=== PATIENT | male | born 1955 | race Caucasian/White ===

== ENCOUNTER 2017-12-07 10:19 | Inpatient (IN) | payer BC ==
[2017-12-07 10:31] VITALS: BMI 27.3
[2017-12-07] MEDS ORDERED: SODIUM CHLORIDE 1,000 ML IV STA ×2 (10:59→13:06)
[2017-12-07] MEDS ORDERED: DIPHTH,PERTUSS(ACELL),TET 0.5 ML DISP.SYRIN IM ONE (10:59)
[2017-12-07] MEDS ORDERED: AMPICILLIN NA/SULBACTAM NA 3 GM in SODIUM CHLORIDE 100 ML IVPB ONE (11:00)
[2017-12-07] MEDS ORDERED: ACETAMINOPHEN 500 MG TABLET (FP) PO ONE (11:01)
--- NOTE | 2017-12-07 11:03 | PDOC ---
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 He noticed progressive swelling, tenderness of the mid finger on the palmar aspect extending to the forearm) - History of Present Illness Timing/Duration: getting worse Modifying Factors: improves with: immobilization Associated Symptoms: reports: denies symptoms Past History - Travel Traveled outside of the country in the last 30 days: No Close contact w/someone who was outside of country & ill: No - Past Medical History Allergies/Adverse Reactions: Allergies Allergy/AdvReac Type Severity Reaction Status Date / Time oxycodone Allergy Itching Verified 12/07/17 10:20 Home Medications: Ambulatory Orders Amlodipine Besylate 10 mg PO DAILY 12/07/17 Aspirin [Aspirin EC] 81 mg PO DAILY 12/07/17 Ibuprofen [Advil -] 200 mg PO ASDIR 12/07/17 Rosuvastatin Calcium [Crestor] 40 mg PO DAILY 12/07/17 COPD: No HTN: Yes Hypercholesterolemia: Yes - Surgical History Appendectomy: Yes - Suicide/Smoking/Psychosocial Hx Smoking History: Never smoked Hx Alcohol Use: (social) Review of Systems - Review of Systems Able to Perform ROS?: Yes Is the patient limited Wolof proficient: Yes Constitutional: Yes: Symptoms Reported, Fever, Malaise HEENTM: No: Symptoms Reported, See HPI, Eye Pain, Blurred Vision, Tearing, Recent change in vision, Double Vision, Cataracts, Ear Pain, Ocular Prothesis, Ear Discharge, Nose Pain, Nose Congestion, Tinnitus, Nose Bleeding, Hearing Loss , Throat Pain, Throat Swelling, Mouth Pain, Dental Problems, Difficulty Swallowing, Mouth Swelling, Other Respiratory: No: Symptoms reported, See HPI, Cough, Orthopnea, Shortness of Breath, SOB with Exertion, SOB at Rest, Stridor, Wheezing, Productive cough, Hemoptysis, Other Cardiac (ROS): No: Symptoms Reported, See HPI, Chest Pain, Edema, Irregular Heart Rate, Lightheadedness, Palpitations, Syncope, Chest Tightness, Other ABD/GI: No: Symptoms Reported, See HPI, Abdominal Distended, Abd. Pain w/ defecation, Blood Streaked Bowels, Constipated, Diarrhea, Difficulty Swallowing , Nausea, Poor Appetite, Poor Fluid Intake, Rectal Bleeding, Vomiting, Indigestion, Abdominal cramping, Tarry Stools, Other : No: Symptoms Reported, See HPI, Burning, Dysuria, Discharge, Frequency, Flank Pain, Hematuria, Incontinence, Pain, Urgency, Testicular Mass, Testicular Swelling, Lesions, Testicular Pain, Other Musculoskeletal: Yes: Symptoms Reported, See HPI Integumentary: Yes: Symptoms Reported, See HPI Neurological: No: Symptoms reported, See HPI, Headache, Numbness, Paresthesia, Pre-Existing Deficit, Seizure, Tingling, Tremors, Weakness, Unsteady Gait, Ataxia, Dizziness, Other Psychiatric: No: Anxiety, Depression, Frequent Crying, Stressors, Sleep Pattern Change, Emotional Problems, Mood Swings, Change in Appetite, Other All Other Systems: Reviewed and Negative *Physical Exam - Vital Signs Last Vital Signs Temp Pulse Resp BP Pulse Ox 100.3 F H 102 H 20 143/89 99 12/07/17 10:20 12/07/17 10:20 12/07/17 10:20 12/07/17 10:20 12/07/17 10:20 - Physical Exam General Appearance: Yes: Nourished, Appropriately Dressed, Moderate Distress HEENT: positive: RAEANN Neck: positive: Supple Respiratory/Chest: positive: Lungs Clear Cardiovascular: positive: S1, S2 Extremity: positive: Normal Capillary Refill, Swelling (Swelling, tenderness mid finger of the left hand redness extending on the volar aspect of the wrist and forearm) Integumentary: positive: Normal Color Neurologic: positive: 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 - Medical Decision Making Blood tests, X rays and atbc ordered immediately from arrival. Discussed with Dr Andrea Villarreal [facility] plastic surgeon , Patient will be taken to OR at the [facility] Arrangement made for OR acces at [facility] 12/07/17 14:25 *DC/Admit/Observation/Transfer Diagnosis at time of Disposition: Tenosynovitis of finger and hand - Discharge Dispostion Condition at time of disposition: Guarded Admit: Yes - Referrals - Patient Instructions - Post Discharge Activity
[2017-12-07] MEDS ORDERED: AMPICILLIN NA/SULBACTAM NA 3 GM VIAL ONE (11:10)
[2017-12-07] MEDS ORDERED: ACETAMINOPHEN 500 MG TABLET (FP) ONE (11:10)
[2017-12-07 11:20] LABS: BASO % 0.2 % (0-2.0); EOS % 0.2 % (0-4.5); HEMATOCRIT 42.8 % (35.4-49); HEMOGLOBIN 14.1 GM/dl (11.7-16.9); LYMPH % 7.7 % (8-40); MCH 28.9 pg (25.7-33.7); MCHC 32.9 g/dl (32.0-35.9); MEAN CELL VOLUME 87.6 fl (80-96); MEAN PLT VOLUME 8.1 fl (7.5-11.1); MONO % 7.4 % (3.8-10.2); NEUT % 84.5 % (42.8-82.8); PLATELET COUNT 288 K/MM3 (134-434); RBC 4.89 M/mm3 (4.00-5.60); WHITE BLOOD COUNT 11.3 K/mm3 (4.0-10.8)
[2017-12-07 11:27] LABS: ALBUMIN 3.7 g/dl (3.5-5.0); ALK PHOS 72 U/L (32-92); ANION GAP 10 (8-16); BILIRUBIN,TOTAL 0.5 mg/dl (0.2-1.0); BLOOD UREA NITROGEN 11 mg/dl (7-18); CALCIUM 8.7 mg/dl (8.4-10.2); CHLORIDE 102 mmol/L (98-107); CO2 23 mmol/L (22-28); GLUCOSE,RANDOM 273 mg/dl (74-106); POTASSIUM 3.6 mmol/L (3.5-5.1); SGOT/AST 33 U/L (10-42); SGPT/ALT 39 U/L (10-40); SODIUM 135 mmol/L (136-145); TOT PROT 6.7 g/dl (6.4-8.3)
--- NOTE | 2017-12-07 12:44 | HP ---
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 He denies fevers/chills. ER course was notable for: (1) Marked swelling and limited ROM with erythema of dorsum of hand as well as left upper arm (2) Hand xray: no retained foreign body (3) WBC 11.3, lactic acid 2.8, random glucose 273 Recent Travel: None PAST MEDICAL HISTORY: As above PAST SURGICAL HISTORY: Left rotator cuff, left knee, appendix, tonsills Social History: Lives with 17 year old son, employed Smoking: Never smoker Alcohol: Occasional Drugs: None Family History: Dementia, HTN Allergies oxycodone Allergy (Verified 12/07/17 10:20) Itching HOME MEDICATIONS: Home Medications Medication Instructions Recorded Amlodipine Besylate 10 mg PO DAILY 12/07/17 Aspirin [Aspirin EC] 81 mg PO DAILY 12/07/17 Ibuprofen [Advil -] 200 mg PO ASDIR 12/07/17 Rosuvastatin Calcium [Crestor] 40 mg PO DAILY 12/07/17 REVIEW OF SYSTEMS CONSTITUTIONAL: Absent: fever, chills, diaphoresis, generalized weakness, malaise, loss of appetite, weight change HEENT: Absent: rhinorrhea, nasal congestion, throat pain, throat swelling, difficulty swallowing, mouth swelling, ear pain, eye pain, visual changes CARDIOVASCULAR: Absent: chest pain, syncope, palpitations, irregular heart rate, lightheadedness , peripheral edema RESPIRATORY: Absent: cough, shortness of breath, dyspnea with exertion, orthopnea, wheezing, stridor, hemoptysis GASTROINTESTINAL: Absent: abdominal pain, abdominal distension, nausea, vomiting, diarrhea, constipation, melena, hematochezia GENITOURINARY: Absent: dysuria, frequency, urgency, hesitancy, hematuria, flank pain, genital pain MUSCULOSKELETAL: See HPI SKIN: Absent: rash, itching, pallor HEMATOLOGIC/IMMUNOLOGIC: Absent: easy bleeding, easy bruising, lymphadenopathy, frequent infections ENDOCRINE: Absent: unexplained weight gain, unexplained weight loss, heat intolerance, cold intolerance NEUROLOGIC: Absent: headache, focal weakness or paresthesias, dizziness, unsteady gait, seizure, mental status changes, bladder or bowel incontinence PSYCHIATRIC: Absent: anxiety, depression, suicidal or homicidal ideation, hallucinations. PHYSICAL EXAMINATION Vital Signs - 24 hr 12/07/17 10:20 Temperature 100.3 F H Pulse Rate 102 H Respiratory 20 Rate Blood Pressure 143/89 O2 Sat by Pulse 99 Oximetry (%) GENERAL: Awake, alert, and fully oriented, in no acute distress. EYES: Pupils equal, round and reactive to light, extraocular movements intact, sclera anicteric, conjunctiva clear. No lid lag. EARS, NOSE, THROAT: Ears normal, nares patent, oropharynx clear without exudates. Moist mucous membranes. NECK: Normal range of motion, supple without lymphadenopathy, JVD, or masses. LUNGS: Breath sounds equal, clear to auscultation bilaterally. No wheezes, and no crackles. No accessory muscle use. HEART: Regular rate and rhythm, normal S1 and S2 without murmur, rub or gallop. ABDOMEN: Soft, nontender, not distended, normoactive bowel sounds, no guarding, no rebound, no masses. No hepatomegaly or splenomegaly. MUSCULOSKELETAL: Normal range of motion at all joints. No bony deformities or tenderness. No CVA tenderness. UPPER EXTREMITIES: 2+ pulses, warm, well-perfused. No cyanosis. No clubbing. Left 3rd digit swelling and limited ROM, lymphangitic streaking up hand with isolated redness over left bicep. LOWER EXTREMITIES: 2+ pulses, warm, well-perfused. No calf tenderness. No peripheral edema. NEUROLOGICAL: Cranial nerves II-XII intact. Normal speech. Normal gait. PSYCHIATRIC: Cooperative. Good eye contact. Appropriate mood and affect. SKIN: Warm, dry, normal turgor. Laboratory Results - last 24 hr 12/07/17 12/07/17 11:00 11:00 WBC 11.3 H RBC 4.89 Hgb 14.1 Hct 42.8 MCV 87.6 MCH 28.9 MCHC 32.9 RDW 12.0 Plt Count 288 MPV 8.1 Neutrophils % 84.5 H Lymphocytes % 7.7 L Monocytes % 7.4 Eosinophils % 0.2 Basophils % 0.2 Sodium 135 L Potassium 3.6 Chloride 102 Carbon Dioxide 23 Anion Gap 10 BUN 11 Creatinine 1.0 Creat Clearance w eGFR > 60 Random Glucose 273 H Calcium 8.7 Total Bilirubin 0.5 AST 33 ALT 39 Alkaline Phosphatase 72 Total Protein 6.7 Albumin 3.7 ASSESSMENT/PLAN: 62 year old male with cellulitis and tenosynovitis of the left hand. Problem List - Problem (1) Tenosynovitis of finger and hand Assessment/Plan: -Continue Unasyn -Vancomycin x 1 dose pending ID recommendations -NPO for OR (last had vanilla oscar this morning, no solids today) -Acetaminophen for pain control - patient recalls having "a derivative of morphine" without reaction in the past, but does not recall name; consider Toradol post-operatively -No history of adverse reaction to anesthesia, medically optimized to proceed with surgery today -Cellulitic area outlined with marker; monitor for progression Code(s): M65.9 - SYNOVITIS AND TENOSYNOVITIS, UNSPECIFIED (2) HTN (hypertension) Code(s): I10 - ESSENTIAL (PRIMARY) HYPERTENSION (3) HLD (hyperlipidemia) Code(s): E78.5 - HYPERLIPIDEMIA, UNSPECIFIED (4) DVT prophylaxis Assessment/Plan: -SCDs Code(s): WZV4460 - Visit type - Emergency Visit Emergency Visit: Yes Care time: The patient presented to the Emergency Department on the above date and was hospitalized for further evaluation of their emergent condition. - New Patient This patient is new to me today: Yes Date on this admission: 12/07/17 - Critical Care Critical Care patient: No
[2017-12-07] MEDS ORDERED: ACETAMINOPHEN 325 MG TABLET (FP) PO PRN (12:46)
[2017-12-07] MEDS ORDERED: ONDANSETRON 4 MG/2 ML VIAL IVPUSH PRN ×3 (12:50→21:54)
[2017-12-07] MEDS ORDERED: VANCOMYCIN 1,000 MG in DEXTROSE 5%-WATER - 250 ML IVPB ONE ×2 (13:16→22:00)
[2017-12-07] MEDS ORDERED: VANCOMYCIN 1,000 MG VIAL (RESTRICTED TO ID ONLY) ONE (13:18)
[2017-12-07] MEDS ORDERED: DOCUSATE SODIUM 100 MG CAPSULE (FP) PO SCH ×2 (14:00→22:00)
--- NOTE | 2017-12-07 16:02 | EKG ---
Test Reason : Blood Pressure : / mmHG Vent. Rate : 087 BPM Atrial Rate : 087 BPM P-R Int : 212 ms QRS Dur : 090 ms QT Int : 344 ms P-R-T Axes : 030 -07 -01 degrees QTc Int : 413 ms SINUS RHYTHM WITH 1ST DEGREE A-V BLOCK MINIMAL VOLTAGE CRITERIA FOR LVH, MAY BE NORMAL VARIANT SEPTAL INFARCT , AGE UNDETERMINED ABNORMAL ECG NO PREVIOUS ECGS AVAILABLE Confirmed by Junito Robertson ([id number]) on 12/07/2017 4:02:34 PM Referred By: MARCO Confirmed By:Junito Robertson
[2017-12-07] MEDS ORDERED: DESFLURANE GAS 240 ML BOTTLE IH ONE (16:43)
[2017-12-07] MEDS ORDERED: MIDAZOLAM HCL 2 MG/2 ML SINGLE DOSE VIAL ONE (16:45)
[2017-12-07] MEDS ORDERED: PROPOFOL 20 ML ONE ×3 (16:45)
[2017-12-07] MEDS ORDERED: ePHEDrine SULFATE 50 MG/1 ML AMPULE ONE (16:46)
[2017-12-07] MEDS ORDERED: SUCCINYLCHOLINE CHLORIDE 200 MG/10 ML VIAL ONE (16:46)
[2017-12-07] MEDS ORDERED: LIDOCAINE HCL/PF 2% SDV 5ML VIAL ONE (16:47)
[2017-12-07] MEDS ORDERED: IBUPROFEN 800 MG/8 ML IJ IVPB PRN (16:59)
[2017-12-07] MEDS ORDERED: HYDROmorphone HCL CARPU-JECT 1 MG/1 ML DISP.SYRIN IVPUSH PRN ×5 (16:59→21:46)
[2017-12-07] MEDS ORDERED: LACTATED RINGERS SOLUTION 1,000 ML IV SCH ×3 (17:00→22:00)
[2017-12-07] MEDS ORDERED: ACETAMINOPHEN INJECTION 100 ML IVPB ONE (17:37)
[2017-12-07] MEDS ORDERED: HYDROmorphone HCL CARPU-JECT 2 MG/1 ML DISP.SYRIN ONE (17:38)
--- NOTE | 2017-12-07 17:42 | CONSULT ---
Consult - text type - Consultation Consultation Note: RHD 61 year old man injured his left long finger on tile two days ago and continued working without difficulty. Todya, however, he awoke with pain and swelling of the finger. PMH HTN PSH left rotator cuff repair one year ago. 40mg crestor Ibuprofen HTN med cannot remember Exam: left long finger with fusiform swelling and pain on passive extension. he cam only very minimally actively extend the finger. Several superficial appearing wounds on both sides of the finger. His motion is limited by pain and swelling, but he can demonstrate independent flexion and extension of the IP joints. Assessment is flexor tenosynovitis with possible joint space involvement of the PIP and or DIP joints. Plan is for washout and drainage of all deep spaces of the finger with monitoring and IV abx.
[2017-12-07] MEDS ORDERED: PHENYLEPHRINE HCL 10 MG/1 ML SINGLE DOSE VIAL ONE (18:10)
[2017-12-07] MEDS ORDERED: ONDANSETRON 4 MG/2 ML VIAL ONE (18:10)
--- NOTE | 2017-12-07 18:24 | CONS ---
DATE OF CONSULTATION: 12/07/2017 The patient seen at request of referring physician, Dr. Mario Martines. HISTORY: This is a 62-year-old male with hypertension, hyperlipidemia, and arthritis, who presents 2 days after injuring the left 3rd finger on tile at home. He has new onset of pain and swelling to the finger today and comes to the emergency room for evaluation and treatment. In the emergency room, he was noted to have marked swelling and reduced range of motion as well as cellulitis and lymphangitis extending up the hand and arm. Hand x-ray showed no foreign body. He was found to have white blood cell count of 11.3, lactic acid of 2.8, random glucose of 273. Past medical history is as above. Past surgical history is a left rotator cuff, left knee, appendix, and tonsils. SOCIAL HISTORY: He does not smoke, drink, or use drugs. FAMILY HISTORY: Noncontributory. MEDICATIONS: As per hospital chart. The labs are reviewed on the hospital chart. The x-ray is reviewed. There is no evidence of osteomyelitis, foreign body, or joint effusion. EXAMINATION: Head and Neck: As described. Heart: Regular rate and rhythm. Lungs: Clear to auscultation. Abdomen: Soft, nontender. Extremities: Warm, well perfused. The left lung finger has fusiform swelling, there is limited range of motion based on the pain; however, he is able to demonstrate normal sensation on both the radial and ulnar sides of the finger. Additionally, he can actively extend and flex at each of the IP joints of the finger. There is no particular area of palpable fluctuance; however, there is fusiform swelling and the patient is maintaining the finger in a fixed flexed position. The remainder of the patient's exam is otherwise unremarkable. Vital Signs: He is febrile to 100.3, slightly tachycardic at 102. Blood pressure is 143/89. Oxygen is 99% on room air. REVIEW OF SYSTEMS: Negative for any bleeding, coagulopathy, recent fever, infection, change in mental status, chest pain, shortness of breath. ASSESSMENT: This is a 62-year-old man who is febrile and borderline septic from what appears to be cellulitis, flexion tenosynovitis, and potentially joint space infection of the left long finger. Patient is counseled on risks, benefits, alternatives, for washout, drainage of the flexor tendon sheath, as well as the joint space. He understands and agrees to proceed. Patient started on vancomycin and Unasyn in the emergency room. He is n.p.o. and planned for surgery this afternoon. DEN MARSH M.D. [id number] cc: Mario Martines MD
[2017-12-07] MEDS ORDERED: BACITRACIN 15 GM TUBE TOPICAL OINTMENT ONE (18:26)
[2017-12-07] MEDS ORDERED: BACITRACIN 50,000 UNITS VIAL NR ONE (18:30)
[2017-12-07] MEDS ORDERED: BUPIVACAINE HCL/PF 0.5% (5MG/ML) 10 ML VIAL IJ ONE (18:45)
--- NOTE | 2017-12-07 18:57 | OP ---
Operative Note - Note: Operative Date: 12/07/17 Pre-Operative Diagnosis: left long finger flexor tenosynovitis Operation: incision and drainage of flexor tendon sheath and PIP and DIP joints left long finger Post-Operative Diagnosis: Same as Pre-op Surgeon: Andrea Villarreal Anesthesia: General, Local Specimens Removed: culture x 2 Drains & Tubes with Location: kisha x 3
--- NOTE | 2017-12-07 19:34 | OP ---
DATE OF OPERATION: 12/07/2017 PROCEDURE: Left long finger incision and drainage of flexor tendon sheath with septic left long finger, washout of proximal interphalangeal and distal interphalangeal joints. ATTENDING SURGEON: Andrea Marsh MD PREOPERATIVE DIAGNOSIS: Sepsis with left long finger flexor tenosynovitis and possible joint space involvement. POSTOPERATIVE DIAGNOSIS: Sepsis with left long finger flexor tenosynovitis and possible joint space involvement. DESCRIPTION OF PROCEDURE: The patient was marked in the holding area, was aware of all risks, benefits and alternatives of the procedure. He is counseled on possible need for further washout and drainage, understands and agrees to proceed. The patient is brought to the operating room and placed in a supine position. After induction of general anesthesia, the patient is prepped and draped standardly. The hand is elevated with no Esmarch used. The tourniquet is elevated to 250 mmHg pressure. Under loupe magnification an incision is made at the flexion crease at each left long finger DIP joint, PIP joint and just proximal to the flexor crease of the MCP joint. With retraction, exposure was given to the flexor tendon sheath, which was opened at each of these locations. Turbid fluid is expressed and sent for culture. The flexor tendon sheath system is then irrigated with bacitracin containing normal saline with a 20 Angiocath through each of these incisions where the effluent is able to be seen coming through the next incision, clearly demonstrating flow through the flexor tendon system. Next, copious irrigation is performed. Etlan drains are cut to the appropriate size and are then placed into each of the wounds, secured with 4-0 nylon sutures, one Elena drain in each of the 3 wounds. The hand was then turned to the dorsum, where existing lacerations were opened. Scissors were spread to the extent of the depth of the lacerations and these areas are irrigated. No additional dissection was performed to enter any of the joint spaces. However, the wounds were irrigated and if in fact there is a joint space inoculation, the joint space was likewise irrigated. This is done at lacerations overlying each PIP joint and the DIP joint. At the completion of this the finger is pink and viable. A 6 mL injection of 0.5% Marcaine plain as a digital block has been given. The wound was traced with bacitracin, Xeroform, and Maulik. An Ortho-Glass 4-inch splint is applied with a 4-inch Maikel wrap. Hand is elevated. All fingers are pink and viable. Total tourniquet time for this case is 32 minutes. The patient is awoken from anesthesia and transferred to recovery without complication. ANDREA MARSH M.D. CRISTOPHER/[id number]
[2017-12-07] MEDS ORDERED: AMPICILLIN NA/SULBACTAM NA 3 GM in SODIUM CHLORIDE 100 ML IVPB SCH (21:00)
[2017-12-07] MEDS ORDERED: VANCOMYCIN 1,000 MG in DEXTROSE 5%-WATER - 250 ML IVPB SCH (22:00)
[2017-12-07] MEDS ORDERED: ROSUVASTATIN CA 40 MG TABLET PO SCH ×2 (22:00)
[2017-12-07] MEDS ORDERED: VANCOMYCIN 1 GRAM (PRE-DOCKED) 1,000 MG/250 ML BAG IVPB ONE (22:30)
[2017-12-07] MEDS: ROSUVASTATIN CA 40 MG TABLET PO SCH (22:45)
[2017-12-07] MEDS: AMPICILLIN NA/SULBACTAM NA 3 GM/100 ML BAG IVPB SCH (22:45)
[2017-12-07] MEDS: DOCUSATE SODIUM 100 MG CAPSULE (FP) PO SCH (22:46)
[2017-12-08] MEDS ORDERED: MELATONIN 5 MG TABLETS PO SCH (00:30)
[2017-12-08] MEDS: ACETAMINOPHEN 325 MG TABLET (FP) PO PRN ×3 (03:00→16:37)
[2017-12-08] MEDS: AMPICILLIN NA/SULBACTAM NA 3 GM/100 ML BAG IVPB SCH ×4 (03:00→21:18)
[2017-12-08] MEDS: DOCUSATE SODIUM 100 MG CAPSULE (FP) PO SCH ×3 (05:14→21:18)
--- NOTE | 2017-12-08 08:14 | PN ---
Physical Exam: SUBJECTIVE: Patient seen and examined, reports less hand pain, denies any paresthesia to the extremity. OBJECTIVE: Patient is a 62 year old male with HTN, HLD, and osteoarthritis. Patient is s/p incision and drainage of left incision and drainage of flexor tendon sheath and PIP and DIP joints left 3rd digit, Dr Villarreal, 12/07/17 and tenosynovitis Vital Signs Period Temp Pulse Resp BP Sys/Andrade Pulse Ox Last 24 Hr 97.6 F-100.3 F 70-102 16-20 116-143/65-89 96-99 GENERAL: The patient is awake, alert, and fully oriented, in no acute distress. HEAD: Normal with no signs of trauma. EYES: PERRL, extraocular movements intact, sclera anicteric, conjunctiva clear. No ptosis. ENT: Ears normal, nares patent, oropharynx clear without exudates, moist mucous membranes. NECK: Trachea midline, full range of motion, supple. LUNGS: Breath sounds equal, clear to auscultation bilaterally, no wheezes, no crackles, no accessory muscle use. HEART: Regular rate and rhythm, S1, S2 without murmur, rub or gallop. ABDOMEN: Soft, nontender, nondistended, normoactive bowel sounds, no guarding, no rebound, no hepatosplenomegaly, no masses. EXTREMITIES: 2+ pulses, warm, well-perfused, no edema. LEFT UPPER EXTREMITY: left hand-anterior, 3rd digit, three kisha drains noted to PIP and DIP, minimal erythema noted, serrous drainage, erythema not extending past markings NEUROLOGICAL: Cranial nerves II through XII grossly intact. Normal speech, gait not observed. PSYCH: Normal mood, normal affect. SKIN: Warm, dry, normal turgor, no rashes or lesions noted Laboratory Results - last 24 hr 12/07/17 12/07/17 12/07/17 11:00 11:00 11:00 WBC 11.3 H RBC 4.89 Hgb 14.1 Hct 42.8 MCV 87.6 MCH 28.9 MCHC 32.9 RDW 12.0 Plt Count 288 MPV 8.1 Neutrophils % 84.5 H Lymphocytes % 7.7 L Monocytes % 7.4 Eosinophils % 0.2 Basophils % 0.2 Sodium 135 L Potassium 3.6 Chloride 102 Carbon Dioxide 23 Anion Gap 10 BUN 11 Creatinine 1.0 Creat Clearance w eGFR > 60 Random Glucose 273 H Lactic Acid 2.8 H* Calcium 8.7 Total Bilirubin 0.5 AST 33 ALT 39 Alkaline Phosphatase 72 Total Protein 6.7 Albumin 3.7 12/07/17 15:10 WBC RBC Hgb Hct MCV MCH MCHC RDW Plt Count MPV Neutrophils % Lymphocytes % Monocytes % Eosinophils % Basophils % Sodium Potassium Chloride Carbon Dioxide Anion Gap BUN Creatinine Creat Clearance w eGFR Random Glucose Lactic Acid 0.8 Calcium Total Bilirubin AST ALT Alkaline Phosphatase Total Protein Albumin Active Medications Generic Name Dose Route Start Last Admin Trade Name Freq PRN Reason Stop Dose Admin Acetaminophen 650 mg 12/08/17 03:12 12/08/17 07:51 Tylenol - PO 650 mg Q6H PRN Administration PAIN LEVEL 6-10 Amlodipine Besylate 10 mg 12/08/17 10:00 Norvasc - PO DAILY SWETA Docusate Sodium 100 mg 12/07/17 22:00 12/08/17 05:14 Colace - PO Not Given TID SWETA Vancomycin HCl 1,000 mg/ 250 mls @ 250 mls/hr 12/07/17 22:00 Dextrose IVPB BID SWETA Protocol Lactated Ringer's 1,000 mls @ 125 mls/hr 12/07/17 22:00 12/07/17 22:15 Lactated Ringers Solution IV 125 mls/hr ASDIR SWETA Administration Ampicillin Sodium/Sulbactam Sodium 3 gm in 100 mls @ 200 mls/hr 12/07/17 22: 30 12/08/17 03:00 Unasyn 3 Gm (Pre-Docked) IVPB 200 mls/hr Q6H-IV SWETA Administration Melatonin 5 mg 12/08/17 00:30 12/07/17 23:00 Melatonin PO 5 mg HS SWETA Administration Ondansetron HCl 4 mg 12/07/17 21:54 Zofran Injection IVPUSH Q6H PRN NAUSEA Rosuvastatin Calcium 40 mg 12/07/17 22:00 12/07/17 22:45 Crestor - PO 40 mg HS SWETA Administration Microbiology 12/07/17 11:00 Blood - Peripheral Venous Blood Culture - Preliminary NO GROWTH OBTAINED AFTER 24 HOURS, INCUBATION TO CONTINUE FOR 4 DAYS. 12/07/17 11:00 Blood - Peripheral Venous Blood Culture - Preliminary NO GROWTH OBTAINED AFTER 24 HOURS, INCUBATION TO CONTINUE FOR 4 DAYS. ASSESSMENT/PLAN: 1) MS s/p incision and drainage of left incision and drainage of flexor tendon sheath and PIP and DIP joints left 3rd digit - POD #1, Dr Villarreal, following - continue soaking left hand in sterile saline for 10 minures TID, then re- elevate and splint, dress with bacitracin, xeroform, kiling, puneet and splint - continue vancomycin and unasyn (12/07/17 -), follow intraoperative cultures - no leukocytosis, patient is afebrile 2)cardiovascular hypertension - continue norvasc, b/p at goal hyperlipidemia - continue lipitor 3) endo hyperglycemia - pending hgb a1c - fingersticks achs with regular insulin sliding scale f/e/n - low sodium diet - replete lytes prn ppx - oob - scd dispo: requires inpatient admission Visit type - Emergency Visit Emergency Visit: Yes ED Registration Date: 12/07/17 Care time: The patient presented to the Emergency Department on the above date and was hospitalized for further evaluation of their emergent condition. - New Patient This patient is new to me today: No - Critical Care Critical Care patient: No - Discharge Referral Referred to [facility] Med P.C.: No
--- NOTE | 2017-12-08 08:56 | PN ---
Progress Note (short form) - Note Progress Note: ID Consult dictated POD # 1 I&D flexor tendon sheath, L 3rd digit PIP, DIP Tenosynovitis Cellulitis/ Lymphangitis L UE Leukocytosis Lactic acidosis- resolved Pending c/s, continue empiric vancomycin/ unasyn Local wound care
[2017-12-08] MEDS: amLODIPine BESYLATE 10 MG TABLET (FP) PO SCH (09:35)
[2017-12-08] MEDS: BACITRACIN 15 GM TUBE TOPICAL OINTMENT TP SCH (09:42)
[2017-12-08] MEDS: VANCOMYCIN 1 GRAM (PRE-DOCKED) 1,000 MG/250 ML BAG IVPB SCH ×2 (09:48→21:18)
[2017-12-08] MEDS ORDERED: amLODIPine BESYLATE 10 MG TABLET (FP) PO SCH ×2 (10:00)
[2017-12-08 11:14] LABS: BASO % 0.3 % (0-2.0); EOS % 1.4 % (0-4.5); HEMATOCRIT 38.2 % (35.4-49); HEMOGLOBIN 12.9 GM/dl (11.7-16.9); LYMPH % 11.4 % (8-40); MCH 29.5 pg (25.7-33.7); MCHC 33.7 g/dl (32.0-35.9); MEAN CELL VOLUME 87.5 fl (80-96); MEAN PLT VOLUME 8.1 fl (7.5-11.1); MONO % 8.2 % (3.8-10.2); NEUT % 78.7 % (42.8-82.8); PLATELET COUNT 264 K/MM3 (134-434); RBC 4.36 M/mm3 (4.00-5.60); RDW 12.1 % (11.9-15.9); WHITE BLOOD COUNT 9.9 K/mm3 (4.0-10.8)
[2017-12-08 12:05] LABS: ALBUMIN 3.1 g/dl (3.5-5.0); ALK PHOS 61 U/L (32-92); ANION GAP 6 (8-16); BILIRUBIN,TOTAL 0.7 mg/dl (0.2-1.0); BLOOD UREA NITROGEN 7 mg/dl (7-18); CALCIUM 8.5 mg/dl (8.4-10.2); CHLORIDE 101 mmol/L (98-107); CO2 26 mmol/L (22-28); CREATININE 0.9 mg/dl (0.6-1.3); GLUCOSE,RANDOM 173 mg/dl (74-106); POTASSIUM 3.7 mmol/L (3.5-5.1); SGOT/AST 23 U/L (10-42); SGPT/ALT 29 U/L (10-40); SODIUM 133 mmol/L (136-145); TOT PROT 5.9 g/dl (6.4-8.3)
--- NOTE | 2017-12-08 13:01 | PN ---
Progress Note (short form) - Note Progress Note: 62M POD1 s/p flexor tendon sheaths, PIP and DIP left long finger under GA. Pt doing well, states that pain is well controlled, reports no anesthetic complications.
--- NOTE | 2017-12-08 13:41 | PN ---
Progress Note (short form) - Note Progress Note: Pain much improved Afebrile Leukocytosis resolved Acidosis resolved Exam: much improved ROM, cellulitis decreased, arem lymphangitis decreased. Appreciate ID input and will obs on IV abx and serial exams. Awaiting cultures
--- NOTE | 2017-12-08 14:04 | CONS ---
INFECTIOUS DISEASE CONSULTATION DATE OF CONSULTATION: DATE OF DICTATION: 12/08/2017 HISTORY: The patient is a 62-year-old male evaluated for cellulitis and lymphangitis of the left upper extremity. The patient had sustained an accidental superficial laceration to his left third finger approximately 2 days prior to admission. 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 He subsequently developed worsening pain, swelling, erythema and tenderness of the third finger with the erythema extending to the palm and forearm. He presented to the emergency room where he was found to have cellulitis of the left third finger with lymphangitis of the left forearm. He was admitted to the hospital, empirically treated with vancomycin and Unasyn. The patient was taken to the operating room yesterday where he had incision and drainage of the flexor tendon sheath PIP and DIP joints of the left digit performed. He presently is postoperative day number 1. He has no complaints of pain. He denies any associated fever or chills. The patient denied prior history of soft tissue infection requiring hospitalization or history of MRSA. PAST MEDICAL HISTORY: Positive for hypertension, hyperlipidemia. He is a nondiabetic. PAST SURGICAL HISTORY: Status post left rotator cuff surgery, appendectomy, tonsillectomy. ALLERGIES: To oxycodone. MEDICATIONS: Include: 1. Amlodipine. 2. Aspirin. 3. Advil. 4. Crestor. 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 A nonsmoker. No history of illicit drug use or alcohol use. SYSTEM REVIEWS: Neurologic: No loss of consciousness, seizure activity, nor focal weakness. Cardiac: Negative chest pain or palpitations. Respiratory: Negative cough and sputum production. Gastrointestinal: Negative vomiting or diarrhea. Genitourinary: Negative for urinary tract infection. LABORATORY DATA: White count 11.3, 84 neutrophils ,7 lymphocytes, 7 monocytes, hematocrit 42.8, platelet count 288. BUN 11, creatinine 1.0. Lactic acid 2.8. Blood cultures pending. PHYSICAL EXAM:General: He is awake and alert. He is in no acute distress. Vital Signs: Temperature 98.4, T-Max 100.3, blood pressure 124/71, pulse 79 and regular, respirations 18 per minute. HEENT: Sclerae are anicteric. Heart Sounds: S1, S2. Lungs: Clear bilaterally. No rhonchi, rales or wheezing. Abdomen: Soft and nontender. Extremities: Negative for pedal edema. On examination of the left upper extremity there is fusiform swelling of the left third digit. There are incisional wounds present on the palmar aspect of the third digits over the DIP, PIP and MCP joints. There is erythema extending from the base of the finger to the palm. The areas which had been traced out previously on the dorsum of the left hand as well as the forearm show receding margins of erythema. No purulent wound drainage is noted. IMPRESSION: 1. Postoperative day number 1 incision and drainage flexor tendon sheath, left third digit proximal interphalangeal and distal interphalangeal joints. 2. Tenosynovitis. 3. Cellulitis/lymphangitis of the left upper extremity. 4. Leukocytosis. 5. Lactic acidosis. Pending blood and operative cultures, empiric antibiotic coverage with vancomycin and Unasyn. Local wound care. Will follow. Thank you for your kind referral. MALLORY SANTA M.D. [id number]
[2017-12-08] MEDS ORDERED: PT OWN MED DRAWER 7, Y5N ONE ×2 (14:09→21:05)
[2017-12-08] MEDS: INSULIN SLIDING SCALE (NOVOLOG) 1 VIAL SQ SCH (16:33)
[2017-12-08 16:57] LABS: URINE APPEARANCE Clear; URINE BILIRUBIN Negative (NEGATIVE); URINE BLOOD Negative (NEGATIVE); URINE COLOR YELLOW; URINE GLUCOSE (UA) Negative (NEGATIVE); URINE KETONE Negative (NEGATIVE); URINE NITRITE Negative (NEGATIVE); URINE PROTEIN Negative (NEGATIVE)
[2017-12-08] MEDS: ROSUVASTATIN CA 40 MG TABLET PO SCH (21:18)
[2017-12-08] MEDS: MELATONIN 5 MG TABLETS PO SCH (21:18)
[2017-12-09] MEDS: ACETAMINOPHEN 325 MG TABLET (FP) PO PRN ×2 (02:30→22:05)
[2017-12-09] MEDS: AMPICILLIN NA/SULBACTAM NA 3 GM/100 ML BAG IVPB SCH ×4 (03:00→20:08)
[2017-12-09] MEDS: DOCUSATE SODIUM 100 MG CAPSULE (FP) PO SCH ×3 (06:01→22:04)
[2017-12-09] MEDS: INSULIN SLIDING SCALE (NOVOLOG) 1 VIAL SQ SCH ×5 (06:01→22:16)
[2017-12-09] MEDS ORDERED: PT OWN MED DRAWER 7, Y5N ONE ×2 (06:27→21:53)
[2017-12-09 08:15] LABS: BASO % 0.4 % (0-2.0); EOS % 2.8 % (0-4.5); HEMATOCRIT 39.7 % (35.4-49); HEMOGLOBIN 13.1 GM/dl (11.7-16.9); LYMPH % 19.4 % (8-40); MCH 28.9 pg (25.7-33.7); MCHC 33.1 g/dl (32.0-35.9); MEAN CELL VOLUME 87.4 fl (80-96); MEAN PLT VOLUME 7.9 fl (7.5-11.1); MONO % 10.4 % (3.8-10.2); PLATELET COUNT 301 K/MM3 (134-434); RBC 4.54 M/mm3 (4.00-5.60); RDW 12.2 % (11.9-15.9)
[2017-12-09 08:27] LABS: ANION GAP 8 (8-16); BLOOD UREA NITROGEN 10 mg/dl (7-18); CALCIUM 8.6 mg/dl (8.4-10.2); CHLORIDE 105 mmol/L (98-107); CO2 25 mmol/L (22-28); CREATININE 0.9 mg/dl (0.6-1.3); GLUCOSE,RANDOM 116 mg/dl (74-106); MAGNESIUM 2.2 mg/dL (1.8-2.4); PHOSPHOROUS 3.1 mg/dl (2.5-4.6); POTASSIUM 3.7 mmol/L (3.5-5.1); SODIUM 138 mmol/L (136-145)
--- NOTE | 2017-12-09 09:02 | PN ---
Progress Note, Physician History of Present Illness: Awake, alert No c/o L hand pain No fever/ chills Cultures pending Tolerating antibiotics - Current Medication List Current Medications: Active Medications Acetaminophen (Tylenol -) 650 mg PO Q6H PRN PRN Reason: PAIN LEVEL 6-10 Last Admin: 12/09/17 02:30 Dose: 650 mg Amlodipine Besylate (Norvasc -) 10 mg PO DAILY [facility] Last Admin: 12/08/17 09:35 Dose: 10 mg Bacitracin (Bacitracin -) 1 applic TP DAILY [facility] Last Admin: 12/08/17 09:42 Dose: 1 applic Docusate Sodium (Colace -) 100 mg PO TID [facility] Last Admin: 12/09/17 06:01 Dose: 100 mg Ampicillin Sodium/Sulbactam Sodium (Unasyn 3 Gm (Pre-Docked)) 3 gm in 100 mls @ 200 mls/hr IVPB Q6H-IV [facility] Last Admin: 12/09/17 03:00 Dose: 200 mls/hr Vancomycin HCl (Vancomycin (Pre-Docked)) 1,000 mg in 250 mls @ 166.667 mls/hr IVPB Q12H [facility] Last Admin: 12/08/17 21:18 Dose: 166.667 mls/hr Insulin Aspart (Novolog Vial Sliding Scale -) 1 vial SQ ACHS [facility] PRN Reason: Protocol Last Admin: 12/09/17 06:40 Dose: Not Given Melatonin (Melatonin) 5 mg PO [facility] Last Admin: 12/08/17 21:18 Dose: 5 mg Ondansetron HCl (Zofran Injection) 4 mg IVPUSH Q6H PRN PRN Reason: NAUSEA Rosuvastatin Calcium (Crestor -) 40 mg PO [facility] Last Admin: 12/08/17 21:18 Dose: 40 mg - Objective Vital Signs: Vital Signs Temperature 97.5 F L 12/09/17 05:53 Pulse Rate 70 12/09/17 05:53 Respiratory Rate 18 12/09/17 05:53 Blood Pressure 145/85 12/09/17 05:53 O2 Sat by Pulse Oximetry (%) 96 12/08/17 19:45 Constitutional: Yes: No Distress Eyes: Yes: Conjunctiva Clear Cardiovascular: Yes: Regular Rate and Rhythm, S1, S2 Respiratory: Yes: CTA Bilaterally Gastrointestinal: Yes: Normal Bowel Sounds, Soft. No: Tenderness Extremities: Yes: Other (L 3rd digit decreased edema. No wound drainage. Decreased L hand swelling. Erythema/ lymphangitis nearly resolved) Labs: CBC, BMP 12/09/17 07:45 Assessment/Plan POD #2 I&D flexor tendon sheath, PIP,DIP L 3rd digit Cellulitis/ lymphangitis L hand/ UE nearly all resolved Await cultures Continue vancomycin/ unasyn
[2017-12-09] MEDS: VANCOMYCIN 1 GRAM (PRE-DOCKED) 1,000 MG/250 ML BAG IVPB SCH ×2 (10:10→22:05)
[2017-12-09] MEDS: BACITRACIN 15 GM TUBE TOPICAL OINTMENT TP SCH (10:10)
[2017-12-09] MEDS: amLODIPine BESYLATE 10 MG TABLET (FP) PO SCH (10:10)
--- NOTE | 2017-12-09 10:41 | PN ---
Physical Exam: SUBJECTIVE: Patient seen and examined reports left hand pain well controlled,swelling/ redness improved,no other complains. OBJECTIVE: Vital Signs Period Temp Pulse Resp BP Sys/Andrade Pulse Ox Last 24 Hr 97.5 F-99.1 F 70-77 18-18 111-145/58-85 96-96 GENERAL: The patient is awake, alert, and fully oriented, in no acute distress. HEAD: Normal with no signs of trauma. EYES: PERRL, extraocular movements intact, sclera anicteric, conjunctiva clear. No ptosis. ENT: Ears normal, nares patent, oropharynx clear without exudates, moist mucous membranes. NECK: Trachea midline, full range of motion, supple. LUNGS: Breath sounds equal, clear to auscultation bilaterally, no wheezes, no crackles, no accessory muscle use. HEART: Regular rate and rhythm, S1, S2 without murmur, rub or gallop. ABDOMEN: Soft, nontender, nondistended, normoactive bowel sounds, no guarding, no rebound, no hepatosplenomegaly, no masses. EXTREMITIES: 2+ pulses, warm, well-perfused, no edema. NEUROLOGICAL: Cranial nerves II through XII grossly intact. Normal speech, gait not observed. PSYCH: Normal mood, normal affect. SKIN: Warm, dry, normal turgor, no rashes or lesions noted, left hand middle finger incisions remain dry, swelling and redness improved Laboratory Results - last 24 hr 12/08/17 12/08/17 12/08/17 09:30 09:45 09:45 WBC 9.9 RBC 4.36 Hgb 12.9 Hct 38.2 MCV 87.5 MCH 29.5 MCHC 33.7 RDW 12.1 Plt Count 264 MPV 8.1 Neutrophils % 78.7 Lymphocytes % 11.4 D Monocytes % 8.2 Eosinophils % 1.4 D Basophils % 0.3 Sodium 133 L Potassium 3.7 Chloride 101 Carbon Dioxide 26 Anion Gap 6 L BUN 7 D Creatinine 0.9 Creat Clearance w eGFR > 60 POC Glucometer Random Glucose 173 H D Hemoglobin A1c % 6.0 Calcium 8.5 Phosphorus Magnesium 2.0 Total Bilirubin 0.7 D AST 23 D ALT 29 D Alkaline Phosphatase 61 Total Protein 5.9 L Albumin 3.1 L Urine Color Urine Appearance Urine pH Ur Specific [place] Urine Protein Urine Glucose (UA) Urine Ketones Urine Blood Urine Nitrite Urine Bilirubin Urine Urobilinogen Ur Leukocyte Esterase 12/08/17 12/08/17 12/08/17 16:25 16:50 21:01 WBC RBC Hgb Hct MCV MCH MCHC RDW Plt Count MPV Neutrophils % Lymphocytes % Monocytes % Eosinophils % Basophils % Sodium Potassium Chloride Carbon Dioxide Anion Gap BUN Creatinine Creat Clearance w eGFR POC Glucometer 126 111 Random Glucose Hemoglobin A1c % Calcium Phosphorus Magnesium Total Bilirubin AST ALT Alkaline Phosphatase Total Protein Albumin Urine Color Yellow Urine Appearance Clear Urine pH 7.0 Ur Specific [place] 1.015 Urine Protein Negative Urine Glucose (UA) Negative Urine Ketones Negative Urine Blood Negative Urine Nitrite Negative Urine Bilirubin Negative Urine Urobilinogen 2.0 Ur Leukocyte Esterase Negative 12/09/17 12/09/17 12/09/17 06:28 07:45 07:45 WBC 7.0 RBC 4.54 Hgb 13.1 Hct 39.7 MCV 87.4 MCH 28.9 MCHC 33.1 RDW 12.2 Plt Count 301 MPV 7.9 Neutrophils % 67.0 Lymphocytes % 19.4 D Monocytes % 10.4 H Eosinophils % 2.8 D Basophils % 0.4 Sodium 138 Potassium 3.7 Chloride 105 Carbon Dioxide 25 Anion Gap 8 BUN 10 D Creatinine 0.9 Creat Clearance w eGFR POC Glucometer 104 Random Glucose 116 H D Hemoglobin A1c % Calcium 8.6 Phosphorus 3.1 Magnesium 2.2 Total Bilirubin AST ALT Alkaline Phosphatase Total Protein Albumin Urine Color Urine Appearance Urine pH Ur Specific [place] Urine Protein Urine Glucose (UA) Urine Ketones Urine Blood Urine Nitrite Urine Bilirubin Urine Urobilinogen Ur Leukocyte Esterase Active Medications Generic Name Dose Route Start Last Admin Trade Name Gabriella PRN Reason Stop Dose Admin Acetaminophen 650 mg 12/08/17 03:12 12/09/17 02:30 Tylenol - PO 650 mg Q6H PRN Administration PAIN LEVEL 6-10 Amlodipine Besylate 10 mg 12/08/17 10:00 12/09/17 10:10 Norvasc - PO 10 mg DAILY [facility] Administration Bacitracin 1 applic 12/08/17 10:00 12/09/17 10:10 Bacitracin - TP 1 applic DAILY [facility] Administration Docusate Sodium 100 mg 12/07/17 22:00 12/09/17 06:01 Colace - PO 100 mg TID [facility] Administration Ampicillin Sodium/Sulbactam Sodium 3 gm in 100 mls @ 200 mls/hr 12/07/17 22: 30 12/09/17 10:10 Unasyn 3 Gm (Pre-Docked) IVPB 200 mls/hr Q6H-IV [facility] Administration Vancomycin HCl 1,000 mg in 250 mls @ 166.667 mls/hr 12/08/17 10:00 12/09/17 10:10 Vancomycin (Pre-Docked) IVPB 166.667 mls/hr Q12H [facility] Administration Insulin Aspart 1 vial 12/08/17 16:30 12/09/17 06:40 Novolog Vial Sliding Scale - SQ Not Given ACHS [facility] Protocol Melatonin 5 mg 12/08/17 22:00 12/08/17 21:18 Melatonin PO 5 mg HS [facility] Administration Ondansetron HCl 4 mg 12/07/17 21:54 Zofran Injection IVPUSH Q6H PRN NAUSEA Rosuvastatin Calcium 40 mg 12/07/17 22:00 12/08/17 21:18 Crestor - PO 40 mg HS [facility] Administration Microbiology 12/07/17 11:00 Blood - Peripheral Venous Blood Culture - Preliminary NO GROWTH OBTAINED AFTER 24 HOURS, INCUBATION TO CONTINUE FOR 4 DAYS. 12/07/17 11:00 Blood - Peripheral Venous Blood Culture - Preliminary NO GROWTH OBTAINED AFTER 24 HOURS, INCUBATION TO CONTINUE FOR 4 DAYS. 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 *MS * Left middle finger cellulitis -s/p incision and drainage of left incision and drainage of flexor tendon sheath and PIP and DIP joints left 3rd digit - POD #2 -Sx Dr Villarreal,/ ID following - preliminary negative - wound culture pending - continue soaking left hand in sterile saline for 10 minures TID, then re- elevate and splint, dress with bacitracin, xeroform, kiling, puneet and splint - will continue vancomycin and unasyn (12/07/17 -) - remains afebrile, leukocytosis normalized Cardiovascular *Hypertension- BP stable - continue Norvasc, b/p at goal *Hypelipidemia - continue Lipitor Endo *Hyperglycemia- BS improved - hgb a1c 6 - fingersticks achs with regular insulin sliding scale *f/e/n - low sodium diet - replete lytes prn ppx - oob - scd Dispo: requires inpatient admission Visit type - Emergency Visit Emergency Visit: Yes ED Registration Date: 12/07/17 Care time: The patient presented to the Emergency Department on the above date and was hospitalized for further evaluation of their emergent condition. - New Patient This patient is new to me today: Yes Date on this admission: 12/09/17 - Critical Care Critical Care patient: No
--- NOTE | 2017-12-09 19:29 | PN ---
Progress Note (short form) - Note Progress Note: Finger much improved, minimal pain, erythema resolved, ROM much improved. There is no pain on direct pressure to PIP or DIP joints, so suspicion of joint space infection is very low. I am ok with discharge on PO abx once ok by ID. Patient is to continue twice daily soaks for 10 minutes in sterile saline and then redressing the wounds with bacitracin and xeroform and kliing. Splint can be discontinued on discharge.
[2017-12-09] MEDS: ROSUVASTATIN CA 40 MG TABLET PO SCH (22:04)
[2017-12-09] MEDS: MELATONIN 5 MG TABLETS PO SCH (22:04)
[2017-12-10] MEDS: AMPICILLIN NA/SULBACTAM NA 3 GM/100 ML BAG IVPB SCH ×2 (02:46→09:03)
[2017-12-10] MEDS: DOCUSATE SODIUM 100 MG CAPSULE (FP) PO SCH ×2 (06:22→13:29)
[2017-12-10] MEDS: INSULIN SLIDING SCALE (NOVOLOG) 1 VIAL SQ SCH ×2 (06:26→11:50)
[2017-12-10] MEDS: VANCOMYCIN 1 GRAM (PRE-DOCKED) 1,000 MG/250 ML BAG IVPB SCH (09:03)
[2017-12-10] MEDS: BACITRACIN 15 GM TUBE TOPICAL OINTMENT TP SCH (09:04)
[2017-12-10] MEDS: amLODIPine BESYLATE 10 MG TABLET (FP) PO SCH (09:04)
[2017-12-10] MEDS: ACETAMINOPHEN 325 MG TABLET (FP) PO PRN (09:04)
--- NOTE | 2017-12-10 09:20 | PN ---
Progress Note, Physician History of Present Illness: Awake, alert Reports less L hand pain No fever/ chills Wound Cultures Beta strep BC (-) Tolerating antibiotics - Current Medication List Current Medications: Active Medications Acetaminophen (Tylenol -) 650 mg PO Q6H PRN PRN Reason: PAIN LEVEL 6-10 Last Admin: 12/10/17 09:04 Dose: 650 mg Amlodipine Besylate (Norvasc -) 10 mg PO DAILY [facility] Last Admin: 12/10/17 09:04 Dose: 10 mg Bacitracin (Bacitracin -) 1 applic TP DAILY [facility] Last Admin: 12/10/17 09:04 Dose: 1 applic Docusate Sodium (Colace -) 100 mg PO TID [facility] Last Admin: 12/10/17 06:22 Dose: 100 mg Ampicillin Sodium/Sulbactam Sodium (Unasyn 3 Gm (Pre-Docked)) 3 gm in 100 mls @ 200 mls/hr IVPB Q6H-IV [facility] Last Admin: 12/10/17 09:03 Dose: 200 mls/hr Vancomycin HCl (Vancomycin (Pre-Docked)) 1,000 mg in 250 mls @ 166.667 mls/hr IVPB Q12H [facility] Last Admin: 12/10/17 09:03 Dose: 166.667 mls/hr Insulin Aspart (Novolog Vial Sliding Scale -) 1 vial SQ ACHS [facility] PRN Reason: Protocol Last Admin: 12/10/17 06:26 Dose: Not Given Melatonin (Melatonin) 5 mg PO [facility] Last Admin: 12/09/17 22:04 Dose: 5 mg Ondansetron HCl (Zofran Injection) 4 mg IVPUSH Q6H PRN PRN Reason: NAUSEA Rosuvastatin Calcium (Crestor -) 40 mg PO [facility] Last Admin: 12/09/17 22:04 Dose: 40 mg - Objective Vital Signs: Vital Signs Temperature 98.1 F 12/10/17 06:32 Pulse Rate 74 12/10/17 06:32 Respiratory Rate 18 12/10/17 07:51 Blood Pressure 152/91 12/10/17 06:32 O2 Sat by Pulse Oximetry (%) 96 12/10/17 07:51 Constitutional: Yes: No Distress Eyes: Yes: Conjunctiva Clear Cardiovascular: Yes: Regular Rate and Rhythm, S1, S2 Respiratory: Yes: CTA Bilaterally Gastrointestinal: Yes: Normal Bowel Sounds, Soft. No: Tenderness Extremities: Yes: Other (L 3rd digit less swollen. No wound drainage Decreased swelling, dorsum of hand. Slight residual erythema, dorsum of hand, forearm) Labs: CBC, BMP 12/09/17 07:45 12/09/17 07:45 Assessment/Plan POD #3 I&D flexor tendon sheath, PIP,DIP L 3rd digit Cellulitis/ lymphangitis L hand/ UE nearly all resolved Substitute ceftriaxone 2gm IVPB daily PICC for outpatient antibiotics Will follow up in office 1week
[2017-12-10] MEDS ORDERED: PICC LINE 8 ML FLUSH PROTOCOL IVPUSH PRN (09:47)
--- NOTE | 2017-12-10 09:56 | DS ---
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 He denies fevers/chills. ER course was notable for: (1) Marked swelling and limited ROM with erythema of dorsum of hand as well as left upper arm (2) Hand xray: no retained foreign body (3) WBC 11.3, lactic acid 2.8, random glucose 273 Vital Signs Period Temp Pulse Resp BP Sys/Andrade Pulse Ox Last 24 Hr 98.1 F-99.0 F 74-77 18-19 152-157/91-106 95-97 PHYSICAL EXAM GENERAL: The patient is awake, alert, and fully oriented, in no acute distress. HEAD: Normal with no signs of trauma. EYES: PERRL, extraocular movements intact, sclera anicteric, conjunctiva clear. ENT: Ears normal, nares patent, oropharynx clear without exudates, moist mucous membranes. NECK: Trachea midline, full range of motion, supple. LUNGS: Breath sounds equal, clear to auscultation bilaterally, no wheezes, no crackles, no accessory muscle use. HEART: Regular rate and rhythm, S1, S2 without murmur, rub or gallop. ABDOMEN: Soft, nontender, nondistended, normoactive bowel sounds, no guarding, no rebound, no hepatosplenomegaly, no masses. EXTREMITIES: 2+ pulses, warm, well-perfused, no edema. NEUROLOGICAL: Cranial nerves II through XII grossly intact. Normal speech, gait not observed. PSYCH: Normal mood, normal affect. SKIN: Warm, dry, normal turgor, no rashes or lesions noted. LABS Laboratory Results - last 24 hr 12/09/17 12/09/17 12/09/17 10:30 17:15 22:16 POC Glucometer 110 95 Vancomycin Pre-Dose 7.122 12/10/17 06:24 POC Glucometer 116 Vancomycin Pre-Dose HOSPITAL COURSE: Date of Admission:12/07/17 Date of Discharge: 12/10/17 Minutes to complete discharge: 45 Discharge Summary Reason For Visit: TENOSYNOVITIS OF FINGERS AND HAND/INFECTION Current Active Problems DVT prophylaxis (Acute) HLD (hyperlipidemia) (Acute) HTN (hypertension) (Acute) Tenosynovitis of finger and hand (Acute) Condition: Guarded - Instructions - Home Medications Comprehensive Discharge Medication List: Ambulatory Orders Amlodipine Besylate 10 mg PO DAILY 12/07/17 Aspirin [Aspirin EC] 81 mg PO DAILY 12/07/17 Ibuprofen [Advil -] 200 mg PO [facility] 12/07/17 Melatonin 5 mg PO HS 12/07/17 Rosuvastatin Calcium [Crestor] 40 mg PO DAILY 12/07/17 - Discharge Referral Referred to [facility] No
[2017-12-10] MEDS: CEFTRIAXONE 2 GM/100 ML BAG IVPB SCH ×2 (11:51→13:31)
[2017-12-10 14:52] VITALS: BP 122/72; PULSE 75; TEMP 97.9
== END 2017-12-10 16:00 | disposition home health service (06) | DRG 513 ==
LOC: FER 10:19 → FM/S 14:02 → FER 16:50 → JOR 18:29
PROVIDERS: ADMIT Internal Medicine; ATTEND Nurse Practitioner Family
PROC: 3E1U38Z Irrigation of Joints using Irrigating Substance, Percutaneous Approach (ICD-10-PCS; 2017-12-07)
PROC: 0L980ZZ Drainage of Left Hand Tendon, Open Approach (ICD-10-PCS; principal; 2017-12-07 16:30)
PROC: 02HV33Z Insertion of Infusion Device into Superior Vena Cava, Percutaneous Approach (ICD-10-PCS; 2017-12-10)
DX: M65.842 Other synovitis and tenosynovitis, left hand (principal); E87.2 Acidosis; I10 Essential (primary) hypertension; E78.5 Hyperlipidemia, unspecified; D72.829 Elevated white blood cell count, unspecified
CPT/HCPCS: 36415; 36569; 71046-TC; 73130-TC-LT; 77001-TC; 80048; 80053; 81003; 82962; 83036; 83605; 83735; 84100; 85025; 87040; 87070; 87186; 87205; 90715; 93005; 94760; 99284-25; C1751; G0480

== ENCOUNTER 2017-12-11 09:17 | Day surgery (SDC) | payer BC ==
[2017-12-11 09:47] VITALS: TEMP 97.8
[2017-12-11] MEDS: CEFTRIAXONE IN IS-OSM DEXTROSE 2 GM/50 ML BAG IVPB ONE (09:50)
[2017-12-11 09:59] VITALS: BMI 27.5
[2017-12-11 11:21] VITALS: BP 120/76; PULSE 70
== END 2017-12-11 11:45 | disposition home or self-care (01) ==
LOC: FINFUSION 09:17 → FM/S 09:25 → FINFUSION 11:45
PROVIDERS: ATTEND Internal Medicine
DX: L03.012 Cellulitis of left finger (principal)
CPT/HCPCS: 96365; 96366